=== PATIENT | male | born 1960 | race Two or more races ===

== ENCOUNTER 2018-11-04 11:13 | Day surgery (SDC) | payer BC ==
[2018-11-04] MEDS ORDERED: IV RINGERS,LACTATED 1000ML 1,000 ML IV SCH ×2 (12:15→14:49)
[2018-11-04] MEDS ORDERED: ROCURONIUM 50 MG/5 ML VIAL. ONE (12:19)
[2018-11-04] MEDS ORDERED: fentaNYL PF VIAL 250 MCG/5 ML VIAL ONE (12:19)
[2018-11-04] MEDS ORDERED: BUPIVAC MPF-EPI 0.5%-1:200000 30 ML VIAL. ONE (12:22)
[2018-11-04] MEDS ORDERED: PROPOFOL 20 ML IV ONE (13:58)
[2018-11-04] MEDS ORDERED: DEXAMETHASONE SOD PHOS 20 MG/5 ML VIAL. ONE (13:58)
[2018-11-04] MEDS ORDERED: ONDANSETRON PF 4 MG/2 ML VIAL. ONE (13:58)
[2018-11-04] MEDS ORDERED: LIDOCAINE 2% PF Vial for OR 5 ML VIAL. ONE (13:58)
[2018-11-04] MEDS ORDERED: SEVOFLURANE 61 TO 120 MINUTES. IH ONE (14:04)
[2018-11-04] MEDS ORDERED: GLYCOPYRROLATE 1 MG/5 ML VIAL. ONE (14:05)
[2018-11-04] MEDS ORDERED: NEOSTIGMINE METHYLSULFATE 5 MG/5 ML SYRINGE. ONE (14:05)
--- NOTE | 2018-11-04 14:11 | PDOC4 ---
Operative Note Operative Note Date: 11/04/2018 Preoperative diagnosis: Right inguinal hernia Postoperative diagnosis: Same Procedure: Robotic-assisted laparoscopic right anal hernia repair with mesh Surgeon: Iglesia Specimen: None Dictation: Patient is a 58-year-old male who's complained of a painful right groin bulge for several months procedure of robotic-assisted laparoscopic right inguinal hernia repair with mesh was explained to the patient in detail was benefits were also discussed including bleeding infection injury to intra- abdominal contents possibly necessitating further open operations. The patient seemed understanding able verbal and written consent had the procedure performed. Patient was taken to the operating room placed in supine position general anesthesia was initiated once patient was sleeping he was placed in low lithotomy position and his abdomen was prepped and draped usual sterile fashion using ChloraPrep. An area just above the umbilicus was injected with quarter percent Marcaine with epinephrine incision was made 11 blade scalpel and a Veress needle was placed within the abdomen creating a pneumoperitoneum. Once this was completed a 8mm da Tg port was placed and the da Tg camera was placed within the abdomen which was inspected no other abnormalities were noted a right inguinal hernia was noted. An 8 mm da Tg port was placed in the right mid abdomen and one in the left midabdomen under direct visualization the patient robot was then brought in and docked all port sites Surgiport to the robotic console using grasper and Endo Cisco scissors the peritoneum on the right side was incised and window was propagated and the hernia contents reduced. A large Bard mesh 3-D max for the right groin was placed over the hernia defect the peritoneum was then closed over the mesh with a running 2-0 V LOC suture. The pneumoperitoneum was reduced all ports removed the da Tg robot was undocked. The port sites were all closed with 4-0 subcuticular Monocryl Mastisol Steri-Strips and island dressings were applied. Patient was awakened and extended in the operating room to recovery in stable condition all sponge instrument needle pastoral counselor status correct estimated blood loss 5 mL GABRIELE ESPINO MD Nov 04, 2018 14:11
--- NOTE | 2018-11-04 14:12 | DISCH ---
DISCHARGE INSTRUCTIONS Condition on Discharge Condition on Discharge: Stable Activity After Discharge Activity Instructions for Disc: Avoid exertion Other activity instructions: no lifting more than 20 pounds for 2 weeks Diet after Discharge Diet after Discharge: Regular Wound Incision Care Other wound/incision instructi: May shower in 24 hours Contacting the [facility] after DC Call your doctor for: If your condition worsens Follow-Up Follow up with: Dr. Espino in 2 weeks GABRIELE ESPINO MD Nov 04, 2018 14:12
[2018-11-04] MEDS ORDERED: fentaNYL PF VIAL 100 MCG/2 ML VIAL ONE (14:44)
[2018-11-04] MEDS: fentaNYL PF VIAL 100 MCG/2 ML VIAL IV PRN ×2 (14:48→15:12)
[2018-11-04] MEDS ORDERED: PROCHLORPERAZINE 10 MG/2 ML VIAL. IV PRN (15:00)
[2018-11-04] MEDS ORDERED: MORPHINE SULFATE 2 MG/ML VIAL. IV PRN (15:00)
[2018-11-04] MEDS ORDERED: HYDROmorphone 2 MG/ML VIAL IV PRN (15:00)
[2018-11-04] MEDS ORDERED: LIDOCAINE 1% PF 2 ML VIAL. ID PRN (15:00)
[2018-11-04] MEDS ORDERED: fentaNYL PF VIAL 100 MCG/2 ML VIAL IV PRN (15:00)
[2018-11-04] MEDS ORDERED: ONDANSETRON PF 4 MG/2 ML VIAL. IV PRN (15:00)
[2018-11-04] MEDS ORDERED: oxyCODONE/APAP 5/325 1 TAB TABLET PO ONE ×2 (15:30→16:45)
[2018-11-04 15:35] VITALS: BP 114/77
== END 2018-11-04 16:26 | disposition home or self-care (01) ==
LOC: SURG 11:13
PROVIDERS: ATTEND Surgery
DX: K40.90 Unilateral inguinal hernia, without obstruction or gangrene, not specified as recurrent (principal); E78.5 Hyperlipidemia, unspecified; N40.0 Benign prostatic hyperplasia without lower urinary tract symptoms; Z98.890 Other specified postprocedural states; Z82.49 Family history of ischemic heart disease and other diseases of the circulatory system; Z87.891 Personal history of nicotine dependence
CPT/HCPCS: 49650; A7015; C1781; J0690; J1100; J2001; J2405; J2704; J2710; J3010; J3490; J7120; S2900